=== PATIENT | female | born 1960 | race Caucasian/White ===

== ENCOUNTER → 2017-09-03 | Outpatient (CLI) | payer OTHER | LOC: RAD 01:28 | DX: Z12.31 Encounter for screening mammogram for malignant neoplasm of breast (principal) ==

== ENCOUNTER → 2018-09-07 | Outpatient (CLI) | payer OTHER | LOC: RAD 01:06 | DX: Z12.31 Encounter for screening mammogram for malignant neoplasm of breast (principal) ==

== ENCOUNTER → 2019-09-10 | Outpatient (CLI) | payer OTHER | LOC: RAD 13:21 | DX: Z12.31 Encounter for screening mammogram for malignant neoplasm of breast (principal) ==

== ENCOUNTER → 2020-07-04 | Outpatient (CLI) | payer OTHER ==
[~2020-07-04] MED LIST: AZO COMPLETE F1 EACH PO; BIOTIN1 M1 PO; CITRACAL SOFT1 EACH PO; MELATONIN5 M4 PO; MILK THISTLE175 M4 PO; PERCOCET 7.5-31 EAC1 PO; PROGESTERONE100 MG PO; VITAMIN D350 MC3 PO; VIVELLE DOT; ZYRTEC10 M5 PO
== END ==
LOC: LAB 14:01
PROVIDERS: ATTEND Orthopaedic Surgery Foot and Ankle Surgery
DX: Z01.812 Encounter for preprocedural laboratory examination (principal); Z20.828 Contact with and (suspected) exposure to other viral communicable diseases

== ENCOUNTER → 2020-07-07 | Day surgery (SDC) | payer OTHER ==
[~2020-07-07] VITALS: Ht 167.6 cm; Wt 60.8 kg
--- NOTE | ~2020-07-07 | O ---
[facility] [place] [address] OPERATIVE REPORT Name: DEBBIE VILCHIS Room #: REG [employer].#: [id number] Admission: 07/07/20 Attend Phys: Edenilson Altamirano MD Discharge: Date of : 64 Report #: [id number] THIS REPORT FOR: cc: Emilee Torre MD, Evelina P. MD Kneidel,Edenilson Serrato MD ~ CC: Emilee Altamirano DATE OF SERVICE: 07/07/2020 PREOPERATIVE DIAGNOSES: 1. Left hallux valgus. 2. Left second hammertoe. POSTOPERATIVE DIAGNOSES: 1. Left hallux valgus. 2. Left second hammertoe. PROCEDURES: 1. Left foot Lapidus type procedure. 2. Left foot modified De La Vega procedure. 3. Left foot second toe PIP joint arch arthrodesis. 4. Left foot second toe dorsal capsulotomy and tenotomy. SURGEON: Dr. Edenilson Altamirano. FURNITURE SANDER: Norma Valentin. ANESTHESIA: General. ESTIMATED BLOOD LOSS: Minimal. DRAINS: No drains. TOURNIQUET TIME: 90 minutes. DESCRIPTION OF PROCEDURE: The patient brought to the operating room where she was placed under general anesthesia. Once under adequate general anesthesia, her left lower extremity was prepped and draped in sterile manner. The extremity was elevated, exsanguinated, tourniquet placed at 300 mmHg. A dorsal incision 5 cm in length was made over the first TMT joint. This was dissected down through soft tissue to the first tarsometatarsal joint. A sagittal saw was then used to prepare the joint as that was freed as well with an osteotome. Then freed enough to be rotate it, a rotational pin was placed and did show great rotation. A distal incision in the first webspace was made. This was [address] [address] OPERATIVE REPORT Name: DEBBIE VILCHIS Room #: REG [employer].#: [id number] Admission: 07/07/20 Attend Phys: Edenilson Altamirano MD Discharge: Date of : 64 Report #: [id number] dissected down through soft tissue to the adductor tendon, which was then identified and released from the lateral sesamoid. The sesamoids were then released as well from the plantar proximal phalanx with a Williston blade and the lateral capsule was fenestrated as well with a Williston blade to complete the modified De La Vega procedure. A dorsal incision over the second metatarsal was made and the C-clamp was then placed and with the positioner in place, the toe was rotated and subsequently provisionally fixed into satisfactory alignment with the C clamp. The dorsal bone cutting block was then placed and the saw cuts were made for the Lapidus fusion site. The fusion site was then debrided and any free pieces of bone were removed. This did appear to be clear; therefore, the TMT joint was irrigated copiously and subsequently either side of the joint was fenestrated with a drill. Compression was then placed across the joint and fixation then with 2 plates, one dorsal and lateral was achieved along with a 3.0 compression screw. Excellent fixation and alignment was achieved as verified under fluoroscopy. A distal incision over the medial eminence was made 2 cm in length and it was dissected down through soft tissue of the joint capsule, which was incised in a short portion ellipsed to expose the medial eminence. The medial eminence was then resected with a sagittal saw and the joint was repaired with a #2-0 Ethibond suture in a running stitch manner. A dorsal incision over the proximal interphalangeal joint of the second toe was made with exposure of the second toe proximal phalangeal head. This was then resected with a sagittal saw. The base of the middle phalanx was denuded of any cartilage with a rongeur and subsequently a drill for the Smart Toe implant was placed and fixation across the joint was then achieved with a size 20 Smart Toe implant. Through the patient's previous first webspace incision, a dorsal capsulotomy and tenotomy was performed after dissection down to the dorsal extensor tendons of the second toe with these then incised with a tenotomy scissors and release of the dorsal capsule was achieved as well. Once complete, the wounds were irrigated copiously and closed with 2-0 Vicryl in subcutaneous tissues and 3-0 nylon was used for the skin. The wounds were dressed with Xeroform, 4 x 4s, and a sterile soft compressive dressing was placed. Tourniquet was let down at 90 minutes. Toes were pink and warm with good capillary refill. There were no complications from the procedure. The patient tolerated the procedure well and went to recovery room without incident. By: [id number] Edenilson Altamirano MD /nt
[2020-07-07 12:49] VITALS: BP 126/93
[2020-07-07 15:27] VITALS: BP 126/93
== END | disposition home or self-care (01) ==
LOC: OR 11:23
PROVIDERS: ATTEND Orthopaedic Surgery Foot and Ankle Surgery
DX: M20.42 Other hammer toe(s) (acquired), left foot (principal); M20.12 Hallux valgus (acquired), left foot; Z98.890 Other specified postprocedural states; Z79.899 Other long term (current) drug therapy; Z88.0 Allergy status to penicillin
CPT/HCPCS: 50010; 50101; 50386; 50951; 56524; 56527; 57091; 57180; 57510; 57910; 57946; 62110; 62900; 70005

== ENCOUNTER → 2020-09-14 | Outpatient (CLI) | payer OTHER | LOC: BC 13:01 | PROVIDERS: ATTEND Obstetrics & Gynecology | DX: Z12.31 Encounter for screening mammogram for malignant neoplasm of breast (principal) ==

== ENCOUNTER → 2021-09-21 | Outpatient (CLI) | payer OTHER | LOC: RAD 08:48 | PROVIDERS: ATTEND Obstetrics & Gynecology | DX: Z12.31 Encounter for screening mammogram for malignant neoplasm of breast (principal); N64.59 Other signs and symptoms in breast ==